=== PATIENT | female | born 1955 | race Caucasian/White ===

== ENCOUNTER 2017-01-16 13:16 | Emergency (ER) | payer OTHER ==
[~2017-01-16] VITALS: Ht 165.1 cm; Wt 80.1 kg
[2017-01-16 13:21] VITALS: BP 171/92
[2017-01-16] MEDS ORDERED: LIDOCAINE 1%, 20ML ONE (13:51)
[2017-01-16] MEDS ORDERED: LIDOCAINE 1%, 20ML SQ ONE (14:00)
== END 2017-01-16 14:34 | disposition home or self-care (01) ==
LOC: ED 14:24
DX: L02.214 Cutaneous abscess of groin (principal)
CPT/HCPCS: 10060; 99283; J3490